=== PATIENT | male | born 1995 | race Caucasian/White ===

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

== ENCOUNTER 2017-01-29 13:15 | Emergency (ER) | payer BC, OTHER ==
[~2017-01-29] VITALS: Ht 180.3 cm; Wt 80.7 kg
[~2017-01-29 13:15] MED LIST changes: -BUPIVACAINE MPF 0.5% 30 ML VIAL. ONE; -CEFAZOLIN 1GM IVPB FOR OMNI 50 ML IV PRN; -FENTANYL PF 100 MCG/2 ML VIAL. IV PRN; -LIDOCAINE 1% 1 ML SYRINGE. ID PRN; -LIDOCAINE 1% 20 ML VIAL. ONE; -MORPHINE SULFATE 2 MG/ML DISP.SYRIN. IV PRN; -ONDANSETRON PF 4 MG/2 ML VIAL. IV PRN; -PROCHLORPERAZINE 10 MG/2 ML VIAL. IV PRN
--- NOTE | 2017-01-29 13:35 | PHYS DOC ---
Past Medical History Past Medical History: No Pertinent History Past Surgical History: Other Additional Past Surgical Histo: R HAND TENDON REPAIR Past Surgical History ORIF left wrist Alcohol Use: None Drug Use: Marijuana Adult General Chief Complaint Chief Complaint: FLANK PAIN HPI HPI Patient is a 21 year old male who was seen earlier today in urgent care and diagnosed with strep throat and a possible kidney stone. The patient had microscopic hematuria and is having some left flank pain. The patient reports he rate his pain as a 4 out of 10. Patient does not take any medications for it and he said it feels like a dull ache. The patient reports a sore throat. The patient once he had fevers earlier in the week because of resolved at this time. The patient's strep test was negative. The urgent palliative care coordinator felt that the patient still had strep so he went and treated with penicillin. The patient's current [employer] old causing had kidney stones at that she is a G3 came in to the ED for evaluation. The patient denies nausea or vomiting. Review of Systems Review of Systems Constitutional: Denies or chills [] Eyes: Denies change in visual acuity, redness, or eye pain [] HENT: The patient reports sore throat and runny nose[] Respiratory: Denies cough or shortness of breath [] Cardiovascular: No additional information not addressed in HPI [] GI: Denies abdominal pain, nausea, vomiting, bloody stools or diarrhea the patient reports left flank pain[] : Denies dysuria [] Musculoskeletal: Denies back pain or joint pain [] Integument: Denies rash or skin lesions [] Neurologic: Denies headache, focal weakness or sensory changes [] Endocrine: Denies polyuria or polydipsia [] Current Medications Current Medications Current Medications Medications (Trade) Dose Ordered Sig/Talia Start Time Stop Time Status Last Admin Dose Admin Ibuprofen (Motrin) 800 mg 1X ONCE 01/29/17 14:45 01/29/17 14:46 DC 01/29/17 14:53 800 MG Allergies Allergies Allergies Coded Allergies Type Severity Reaction Last Updated Verified No Known Allergies Allergy Unknown 07/04/16 Yes Physical Exam Physical Exam Constitutional: Well developed, well nourished, no acute distress, non-toxic appearance. [] HENT: Normocephalic, atraumatic, bilateral external ears normal, posterior pharyngeal erythema with mild tonsillar hypertrophy no exudate, no pustules present, no oral exudates, nose normal. [] Eyes: PERRLA, EOMI, conjunctiva normal, no discharge. [] Neck: Normal range of motion, no tenderness, supple, no stridor. [] Cardiovascular:Heart rate regular rhythm, no murmur [] Lungs & Thorax: Bilateral breath sounds clear to auscultation [] Abdomen: Bowel sounds normal, soft, no tenderness, no masses, no pulsatile masses. [] Skin: Warm, dry, no erythema, no rash. [] Back: No tenderness, left CVA tenderness[] Extremities: No tenderness, no cyanosis, no clubbing, ROM intact, no edema. [] Neurologic: Alert and oriented X 3, normal motor function, normal sensory function, no focal deficits noted. [] Psychologic: Affect normal, judgement normal, mood normal. [] Current Patient Data Vital Signs Vital Signs Date Time Temp Pulse Resp B/P (MAP) Pulse Ox O2 Delivery O2 Flow Rate FiO2 01/29/17 14:53 94 16 141/87 (105) 96 01/29/17 13:25 99.0 Room Air 99.0 Lab Values Laboratory Tests Test 01/29/17 13:34 01/29/17 15:05 Urine Collection Type Unknown Urine Color Yellow Urine Clarity Cloudy Urine pH 6.0 Urine Specific [place] 1.020 Urine Protein Negative mg/dL (NEG-TRACE) Urine Glucose (UA) Negative mg/dL (NEG) Urine Ketones (Stick) Negative mg/dL (NEG) Urine Blood Small (NEG) Urine Nitrite Negative (NEG) Urine Bilirubin Negative (NEG) Urine Urobilinogen Dipstick 0.2 mg/dL (0.2 mg/dL) Urine Leukocyte Esterase Negative (NEG) Urine RBC 3-5 /HPF (0-2) Urine WBC 1-4 /HPF (0-4) Urine Bacteria 0 /HPF (0-FEW) Urine Mucus Marked /LPF White Blood Count 7.3 x10^3/uL (4.0-11.0) Red Blood Count 4.56 x10^6/uL (4.30-5.70) Hemoglobin 14.3 g/dL (13.0-17.5) Hematocrit 41.4 % (39.0-53.0) Mean Corpuscular Volume 91 fL (79-100) Mean Corpuscular Hemoglobin 31 pg (25-35) Mean Corpuscular Hemoglobin Concent 34 g/dL (31-37) Red Cell Distribution Width 12.0 % (11.5-14.5) Platelet Count 282 x10^3/uL (140-400) Neutrophils (%) (Auto) 60 % (31-73) Lymphocytes (%) (Auto) 27 % (24-48) Monocytes (%) (Auto) 10 % (0-9) H Eosinophils (%) (Auto) 3 % (0-3) Basophils (%) (Auto) 1 % (0-3) Neutrophils # (Auto) 4.4 x10^3uL (1.8-7.7) Lymphocytes # (Auto) 2.0 x10^3/uL (1.0-4.8) Monocytes # (Auto) 0.7 x10^3/uL (0.0-1.1) Eosinophils # (Auto) 0.2 x10^3/uL (0.0-0.7) Basophils # (Auto) 0.0 x10^3/uL (0.0-0.2) Sodium Level 142 mmol/L (136-145) Potassium Level 4.0 mmol/L (3.5-5.1) Chloride Level 104 mmol/L (98-107) Carbon Dioxide Level 29 mmol/L (21-32) Anion Gap 9 (6-14) Blood Urea Nitrogen 10 mg/dL (8-26) Creatinine 0.8 mg/dL (0.7-1.3) Estimated GFR (Cockcroft-Gault) 124.5 BUN/Creatinine Ratio 13 (6-20) Glucose Level 92 mg/dL (70-99) Calcium Level 9.1 mg/dL (8.5-10.1) Total Bilirubin 0.4 mg/dL (0.2-1.0) Aspartate Amino Transferase (AST) 23 U/L (15-37) Alanine Aminotransferase (ALT) 20 U/L (16-63) Alkaline Phosphatase 68 U/L (46-116) Total Protein 7.8 g/dL (6.4-8.2) Albumin 3.8 g/dL (3.4-5.0) Albumin/Globulin Ratio 1.0 (1.0-1.7) Laboratory Tests 01/29/17 15:05 Laboratory Tests 01/29/17 15:05 EKG EKG [] Radiology/Procedures Radiology/Procedures CT scan of the abdomen and pelvis was read by the radiologist and is negative for kidney stone or other acute pathology area a small lung nodule was noted which, per radiology, would require follow-up only if the patient was high risk. [] Course & Med Decision Making Course & Med Decision Making Pertinent Labs and Imaging studies reviewed. (See chart for details) Patient care transferred to Dr. Haddad then at shift change at 2:59 PM.[] 1555 CT scan of the abdomen and pelvis negative for kidney stone or other renal or urinary tract pathology. Labs are entirely unremarkable except for microscopic hematuria. See instructions for plan. Dragon Disclaimer Dragon Disclaimer This electronic medical record was generated, in whole or in part, using a voice recognition dictation system. Departure Departure Impression: Primary Impression: Asymptomatic microscopic hematuria Disposition: HOME, SELF-CARE Condition: STABLE Referrals: NON,STAFF (PCP) Additional Instructions: Today in the ER, CT scan did not show any kidney stones or any other problem in your kidneys or urinary tract. Labs here did show a very small amount of blood in your urine. This is called "microscopic hematuria." Hematuria means blood in the urine. Microscopic means an amount that is so small that you can only see it under microscope. In a young healthy person, with a negative CT scan, there is most likely not any serious cause for this. I do recommend that you follow up with a urologist to see if any further testing would be indicated. PRAMOD PADGETT MD Jan 29, 2017 13:35 DOMINGO HADDAD MD Jan 29, 2017 15:57
[2017-01-29 13:41] LABS: BILIRUBIN,URINE NEGATIVE (NEG); GLUCOSE,URINE NEGATIVE (NEG); NITRITE,URINE NEGATIVE (NEG); PROTEIN,URINE NEGATIVE (NEG-TRACE); UROBILINOGEN,URINE 0.2 mg/dL (0.2 mg/dL)
[2017-01-29 13:46] LABS: BACTERIA,URINE 0 /HPF (0-FEW)
[2017-01-29] MEDS: IBUPROFEN 800 MG TABLET. PO ONE (14:53)
[2017-01-29 15:12] LABS: BASO % 1 % (0-3); EOS % 3 % (0-3); HEMATOCRIT 41.4 % (39.0-53.0); HEMOGLOBIN 14.3 g/dL (13.0-17.5); LYMPH % 27 % (24-48); MEAN CORPUSCULAR HEMOGLOBIN 31 pg (25-35); MEAN CORPUSCULAR HGB CONC 34 g/dL (31-37); MEAN CORPUSCULAR VOLUME 91 fL (79-100); MONO % 10 % (0-9); NEUT % 60 % (31-73); PLATELET COUNT 282 x10^3/uL (140-400); RED BLOOD COUNT 4.56 x10^6/uL (4.30-5.70); WHITE BLOOD COUNT 7.3 x10^3/uL (4.0-11.0)
[2017-01-29 15:18] LABS: CALCIUM 9.1 mg/dL (8.5-10.1); CREATININE 0.8 mg/dL (0.7-1.3); GFR 124.5
[2017-01-29 15:23] LABS: ALBUMIN 3.8 g/dL (3.4-5.0); TOTAL BILIRUBIN 0.4 mg/dL (0.2-1.0); TOTAL PROTEIN 7.8 g/dL (6.4-8.2)
--- NOTE | 2017-01-29 15:49 | RAD ---
One or more of the following individualized dose reduction techniques were utilized for this examination: 1. Automated exposure control 2. Adjustment of the mA and/or kV according to patient size 3. Use of iterative reconstruction technique CT abdomen and pelvis without contrast. History: Hematuria, right flank pain CT scan of the abdomen and pelvis was done without contrast. There is a small 5 mm pulmonary nodule on image #20 of series 2 in the left lower lobe laterally. Richie Society guidelines would recommend 1 year follow-up for high risk individuals only. Liver is normal in appearance. Spleen and adrenal glands are unremarkable. Pancreas is normal. There is no intrarenal calculus in the kidneys. There is no ureteral calculus noted. Appendix is normal. Bowel pattern is normal. There is no adenopathy. Impression: 1. No renal or ureteral calculus noted. 2. No abdominal or pelvic mass or acute inflammatory process noted. 3. Small left lower lobe nodule
[2017-01-29 16:05] VITALS: BP 155/85
== END 2017-01-29 16:05 | disposition home or self-care (01) ==
LOC: ER 13:15
DX: R31.21 Asymptomatic microscopic hematuria (principal); R10.9 Unspecified abdominal pain; J02.9 Acute pharyngitis, unspecified
CPT/HCPCS: 36415; 74176; 80053; 81001; 85025; 99285-25